=== PATIENT | male | born 1975 | race Caucasian/White ===

== ENCOUNTER 2020-12-22 23:14 | Emergency (ER) | payer BC ==
[2020-12-22] MEDS ORDERED: Ondansetron 4 MG/2 ML SDV IVPUSH ONE (23:30)
[2020-12-22] MEDS ORDERED: HYDROmorphone 1 MG/ML Syringe IVPUSH ONE (23:30)
--- NOTE | 2020-12-22 23:34 | EDM.PDOC ---
ED HPI GENERAL MEDICAL PROBLEM - General Chief Complaint: Lower Extremity Injury/Pain Stated Complaint: [facility] Time Seen by Provider: 12/22/20 23:22 Source of Information: Reports: Patient History Limitations: Reports: No Limitations - History of Present Illness INITIAL COMMENTS - FREE TEXT/NARRATIVE: Mr. Proctor is a very pleasant 45-year-old gentleman who is now brought to the ED by EMS after injuring his left ankle while playing hockey tonight at the [facility]. He states that he ran into another player, then spun clockwise, while his left foot was planted, causing his ankle to twist. He has an obvious deformity to his left ankle. No prior left ankle injury, and he denies any other injuries tonight. EMS gave the patient 1 mg of Dilaudid en route to the ED. The patient states that he last ate around 17:30. Here in the ED, the patient is found to be hemodynamically stable, afebrile, saturating 95% on room air. Prior to tonight's injury, the patient denies having a recent fever, chills, sore throat, ear pain, nasal or sinus congestion, cough, dyspnea, chest pain, palpitations, nausea, vomiting, constipation, diarrhea, abdominal pain, urinary symptoms, recent weight gain or weight loss, recent bloody bowel movements or black bowel movements, recent joint aches, headaches, or rashes. The patient's PCP is Dr. Paz Nunes, in [place], [place]. He has not received an influenza vaccine this season, and declined an offer to get one here in the ED. Treatments YARDAGE ESTIMATOR: Reports: IV/IO Other Treatments YARDAGE ESTIMATOR: Dilaudid 1 mg IVP Left Ankle Pain Score (Numeric/FACES): 9 - Related Data Allergies Allergy/AdvReac Type Severity Reaction Status Date / Time No Known Allergies Allergy Verified 12/22/20 23:19 Home Meds: Home Meds Acetaminophen/HYDROcodone [Worcester 325-5 MG] 1 - 2 tab PO Q6H PRN #14 tablet 12/23/20 [Rx] Ondansetron [Zofran ODT] 1 tab PO Q8H PRN #10 tab.dis 12/23/20 [Rx] Past Medical History Musculoskeletal History: Reports: Fracture (nasal) - Past Surgical History HEENT Surgical History: Reports: Oral Surgery (dental extractions and implants), Other (See Below) (Rhinoplasty) Social & Family History - Tobacco Use Tobacco Use Status *Q: Former Tobacco User Tobacco Use Within Last Twelve Months: Smokeless Tobacco (Chews 1 can/day) Years of Tobacco use: 22 Packs/Tins Daily: 1 Month/Year Tobacco Last Used: Quit 2010 Tobacco Use Comment: Smoked from 13 yrs old to 35 yrs old - Alcohol Use Alcohol Use History: Yes Alcohol Use Frequency: Rarely - Recreational Drug Use Recreational Drug Use: No - Living Situation & Occupation Living situation: Reports: , with Spouse, with Family (12 yr old son) 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 ED EXAM, GENERAL - Physical Exam Exam: See Below Exam Limited By: No Limitations General Appearance: Alert, WD/WN, No Apparent Distress Eye Exam: Bilateral Eye: EOMI, Normal Inspection Ears: Normal External Exam, Hearing Grossly Normal Nose: Normal Inspection Throat/Mouth: Normal Inspection, Normal Lips, Normal Voice, No Airway Compromise Head: Atraumatic, Normocephalic Neck: Normal Inspection, Full Range of Motion Respiratory/Chest: No Respiratory Distress, Lungs Clear, Normal Breath Sounds, No Accessory Muscle Use Cardiovascular: Normal Peripheral Pulses, Regular Rate, Rhythm, No Edema, No Gallop, No JVD, No Murmur, No Rub Peripheral Pulses: 3+: Radial (L), Radial (R) GI/Abdominal: Normal Bowel Sounds, Soft, Non-Tender, No Organomegaly, No Distention, No Abnormal Bruit, No Mass Extremities: No Pedal Edema, Normal Capillary Refill, Other (Lateral dislocation of the left foot with prominence of the medial malleolus. The foot is warm, although a dorsalis pedis pulse is difficult to palpate. The patient reports some tingling, although not anesthesia, to his toes.) Neurological: Alert, Oriented, Normal Cognition, No Motor/Sensory Deficits Psychiatric: Normal Affect Skin Exam: Warm, Dry, Intact, Normal Color, No Rash ED TRAUMA EXTREMITY PROCEDURES - Joint Reduction Left Ankle Sedation: Other (IV Dilaudid) Pre-Procedure NV Status: Normal Post-Procedure NV Status: Normal Technique: Traction/Counter Traction Number of Attempts: 1 Post-Reduction Imaging: Completely Reduced, Fracture Seen Joint Reduction Complications: No Course - Vital Signs Last Recorded V/S: Last Vital Signs Temp 35.9 C L 12/22/20 23:20 Pulse 79 12/22/20 23:20 Resp 17 12/22/20 23:20 BP 112/75 12/22/20 23:20 Pulse Ox 95 12/22/20 23:20 - Orders/Labs/Meds Orders: Active Orders 24 hr Category Date Time Status DME for Discharge [COMM] Stat Oth 12/23/20 00:50 Ordered - Re-Assessments/Exams Free Text/Narrative Re-Assessment/Exam: 12/22/20 23:32 As above, the patient suffered a left ankle injury earlier tonight while playing hockey when his body rotated clockwise, around a planted left foot. He has a lateral dislocation of his left ankle, with concern for a trimalleolar fracture. X-rays have been ordered. In the meantime, the patient will be given some IV Dilaudid and IV Zofran. 12/22/20 23:56 3-view radiographs of the left ankle appear to demonstrate a displaced distal fibular fracture with lateral dislocation of the right talus/foot. No tibial fracture is seen. Formal read per the Radiologist pending. 12/23/20 00:27 After IV Dilaudid, the patient's left ankle was reduced using traction/countertraction, to good anatomic position. A stirrup splint, followed by a posterior mold, was applied. Postreduction films have been ordered. 12/23/20 00:45 3-view post-reduction radiographs of the left ankle appear to demonstrate reduction of the talus to the tibia, with excellent reduction of the distal fibula fracture. No tibial fracture identified. Formal read per the Radiologist pending. 12/23/20 00:[address] Driscoll at 00:49. He feels the patient may safely be discharged home, with follow-up in the clinic. 12/23/20 01:01 X-ray results and my conversation with Dr. Driscoll discussed with the patient. I have ordered crutches. I will discharge him home with prescriptions for [place] and Zofran, in addition to him taking OTC ibuprofen. He is to ice and elevate his left ankle as much as possible over the next few days. I would like him to follow-up with Dr. Driscoll, his own Orthopedic Surgeon (the patient lives in [place], [place]) this week. He will be provided a CD-ROM of his x-ray images. Departure - Departure Time of Disposition: 01:06 Disposition: Home, Self-Care 01 Condition: Good Clinical Impression: Closed fracture of left distal fibula, Dislocation of left ankle joint - Discharge Information *PRESCRIPTION DRUG MONITORING PROGRAM REVIEWED*: Not Applicable *COPY OF PRESCRIPTION DRUG MONITORING REPORT IN PATIENT [place]: Not Applicable Prescriptions: Acetaminophen/HYDROcodone [Worcester 325-5 MG] 1 - 2 tab PO Q6H PRN #14 tablet PRN Reason: Pain (Severe 7-10) Ondansetron [Zofran ODT] 1 tab PO Q8H PRN #10 tab.dis PRN Reason: Nausea/Vomiting Instructions: Ankle Fracture, Ankle Dislocation Referrals: Pranav Driscoll MD [Physician] - Angelica Nunes MD [Ordering Only Provider] - Forms: ED Department Discharge Additional Instructions: You were seen in the emergency room after injuring her left ankle while playing hockey. Work-up in the ER included x-rays of your left ankle, which found a distal fibula fracture and a dislocated ankle. Your ankle was reduced (put back into place) in the ER, followed by the application of a splint. Post-reduction x-rays show good placement of the bones. The splint cannot get wet, and you cannot bear weight on it. Use crutches for all ambulation. Be very careful going up and down stairs. We recommend that you ice and elevate your left ankle as much as possible over the next 2 to 3 days, to help minimize swelling. We recommend you take [id number] ibuprofen, 3 to 4 tablets (600-800 mg) up to every 8 hours, with food, as needed for discomfort. You may also take 1 to 2 tablets of the prescription opioid [place] up to every 6 hours, as needed for pain not relieved by ibuprofen. If you take Worcester, do not drive or operate heavy machinery for 12 hours afterwards. Worcester may cause constipation, so consider taking a stool softener. You may dissolve 1 tablet of the antinausea medicine Zofran on your tongue up to every 8 hours, as needed for nausea/vomiting. We recommend that you follow-up with the Orthopedic Surgeon Dr. Pranav Driscoll, or your own Orthopedic Surgeon, this week. If you elect to see your own Orthopedic Surgeon, a CD-ROM of your x-rays has been provided to you. If any other problems, please do not hesitate to return to the ER. Sepsis Event Note (ED) - Evaluation Sepsis Screening Result: No Definite Risk - My Orders Last 24 Hours: My Active Orders 12/23/20 00:50 DME for Discharge [COMM] Stat - Assessment/Plan Last 24 Hours: My Active Orders 12/23/20 00:50 DME for Discharge [COMM] Stat
[2020-12-23] MEDS ORDERED: HYDROmorphone 1 MG/ML Syringe IVPUSH ONE (00:06)
[2020-12-23] MEDS ORDERED: Ondansetron 4 MG/2 ML SDV IVPUSH ONE (01:47)
--- NOTE | 2020-12-23 07:16 | CR ---
Left ankle: 3 views of the left ankle were obtained. Comparison: No previous study. Fracture is identified within the distal fibula. There is displacement of the tibia and proximal fibula in a medial direction and anterior direction which is compatible with dislocation. No additional abnormality is definitely seen on the study. Impression: 1. Fracture and dislocation as described above. Diagnostic code #5
--- NOTE | 2020-12-23 07:17 | CR ---
Left ankle: 3 views left ankle were obtained. Comparison: Previous ankle study performed earlier on the same day (11:30 PM). Distal fibular fracture is seen which is slightly displaced. Ankle mortise is mildly asymmetric. Fiberglas cast or splint is in place. No additional abnormality is appreciated. Impression: 1. Slightly asymmetric ankle mortise with mildly displaced distal fibular fracture. Previous dislocation has been reduced. 2. Fiberglas cast or splint is in place. Diagnostic code #3
== END 2020-12-23 02:23 | disposition home or self-care (01) ==
LOC: JD.ED 23:14
DX: S82.832A Other fracture of upper and lower end of left fibula, initial encounter for closed fracture (principal); Z87.891 Personal history of nicotine dependence; X50.1XXA Overexertion from prolonged static or awkward postures, initial encounter; Y93.22 Activity, ice hockey
CPT/HCPCS: 27788; 73610; 96374; 96375; 96376; 99284; J1170; J2405; 27840